=== PATIENT | female | born 1955 | race Caucasian/White ===

== ENCOUNTER 2023-12-31 10:19 | Emergency (ER) | payer OTHER ==
[~2023-12-31] VITALS: Ht 162.6 cm; Wt 100.0 kg
[~2023-12-31 10:19] MED LIST: METO-385 PO
[2023-12-31 10:30] VITALS: O2SAT 100
[2023-12-31] MEDS ORDERED: ACETAMINOPHEN 325MG TABLET PO STA (11:14)
[2023-12-31 11:28] LABS: BASOPHILS % 0.3 % (0.0-2.0); EOSINOPHILS % 0.7 % (0.0-5.0); HEMATOCRIT. 39.9 % (36.0-48.0); HEMOGLOBIN. 13.6 g/dL (12.0-16.0); LYMPHOCYTES % 25.8 % (20.0-50.0); MEAN CORPUSCULAR HEMOGLOBIN 31.8 pg (28.0-32.0); MEAN CORPUSCULAR HGB CONC 34.2 g/dL (31.0-37.0); MEAN CORPUSCULAR VOLUME 92.9 fL (81.0-99.0); MEAN PLATELET VOLUME 8.2 fl (7.4-10.4); MONOCYTES % 6.5 % (2.0-8.0); NEUTROPHILS % 66.7 % (40.0-76.0); PLATELET 257 x1000/uL (130-400); RED BLOOD CELL COUNT 4.29 mill/uL (4.2-5.4); RED CELL DISTRIBUTION WIDTH 12.8 % (11.6-14.6); WHITE BLOOD COUNT 9.2 x1000/uL (4.5-11.0)
[2023-12-31 11:38] LABS: INR 0.9; PROTHROMBIN TIME 10.1 sec (9.6-11.0)
[2023-12-31 12:44] LABS: TROPONIN I HIGH SENSITIVITY < 4 ng/L (3.0-34)
[2023-12-31] MEDS: ACETAMINOPHEN 325MG TABLET PO NR (13:05)
[2023-12-31] MEDS: THROAT LOZENGES-BENZOCAINE/MENTH/CETYLPYRD CL LOZENGES MM PRN (13:05)
[2023-12-31 13:34] LABS: CHLORIDE 105 mEq/L (98-107); POTASSIUM 4.3 mEq/L (3.5-5.1); SODIUM 142 mEq/L (136-145)
[2023-12-31 13:35] LABS: CARBON DIOXIDE 30 mEq/L (21-32)
[2023-12-31 13:40] LABS: CREATININE 0.6 mg/dL (0.6-1.0); GLUCOSE 102 mg/dL (70-105); UREA NITROGEN BLOOD 7 mg/dL (9-23)
[2023-12-31 13:41] LABS: ALANINE AMINOTRANSFERASE 16 IU/L (10-49); ASPARTATE AMINOTRANSFERASE 19 IU/L (<34)
[2023-12-31 13:42] LABS: ALBUMIN 4.9 g/dL (3.2-4.8); BILIRUBIN TOTAL 0.5 mg/dL (0.1-1.0); PROTEIN TOTAL 7.7 g/dL (6.0-8.3)
[2023-12-31 13:46] LABS: TROPONIN I HIGH SENSITIVITY < 4 ng/L (3.0-34)
[2023-12-31] MEDS ORDERED: BENZ1LOZ73 MT (16:04)
[2023-12-31] MEDS ORDERED: CETI10CA11 MT (16:04)
[2023-12-31] MEDS ORDERED: NAPR-681 MT (16:04)
[2023-12-31 16:20] VITALS: BP 155/90; PULSE 96; RESP 16; TEMP 98.2
== END 2023-12-31 17:29 | disposition home or self-care (01) ==
LOC: ER 10:19
DX: B34.9 Viral infection, unspecified (principal); E11.9 Type 2 diabetes mellitus without complications; E78.00 Pure hypercholesterolemia, unspecified; Z98.51 Tubal ligation status
CPT/HCPCS: 36415; 71045; 80053; 84484; 85025; 93005; 99291

== ENCOUNTER 2024-01-07 18:46 | Emergency (ER) | payer OTHER ==
[~2024-01-07] VITALS: Ht 162.6 cm; Wt 99.8 kg
[~2024-01-07 18:46] MED LIST changes: +BENZ1LOZ73 MT; +CETI10CA11 MT; +NAPR-681 MT
[2024-01-07 18:58] VITALS: O2SAT 99
[2024-01-07] MEDS ORDERED: TRAM50TA3 MT (20:10)
[2024-01-07] MEDS ORDERED: TOPUD MT (20:10)
[2024-01-07] MEDS: HYDROCODONE/ACETAMINOPHEN 5/325MG TABLET PO ONE (20:52)
[2024-01-07 21:25] VITALS: BP 144/76; PULSE 72; RESP 16; TEMP 98.7
== END 2024-01-07 21:27 | disposition home or self-care (01) ==
LOC: ER 18:46
DX: M72.2 Plantar fascial fibromatosis (principal); M25.571 Pain in right ankle and joints of right foot; E11.9 Type 2 diabetes mellitus without complications; E78.00 Pure hypercholesterolemia, unspecified; I10 Essential (primary) hypertension; Z98.51 Tubal ligation status
CPT/HCPCS: 73590; 73630; 99284

== ENCOUNTER 2025-06-05 15:31 | Emergency (ER) | payer OTHER ==
[~2025-06-05] VITALS: Ht 160 cm; Wt 95.0 kg
[~2025-06-05 15:31] MED LIST changes: +TOPUD MT; +TRAM50TA3 MT
[2025-06-05 15:32] VITALS: O2SAT 97
[2025-06-05 15:41] VITALS: BP 152/62; PULSE 90; RESP 16; TEMP 36.6; O2SAT 98
[2025-06-05 16:58] LABS: BASOPHILS % 0.3 % (0.0-2.0); EOSINOPHILS % 0.5 % (0.0-5.0); HEMATOCRIT. 39.7 % (36.0-48.0); HEMOGLOBIN. 13.5 g/dL (12.0-16.0); LYMPHOCYTES % 20.9 % (20.0-50.0); MEAN PLATELET VOLUME 8.9 fl (7.4-10.4); MONOCYTES % 3.7 % (2.0-8.0); NEUTROPHILS % 74.6 % (40.0-76.0); PLATELET 207 x1000/uL (130-400); RED BLOOD CELL COUNT 4.33 mill/uL (4.2-5.4); RED CELL DISTRIBUTION WIDTH 13.9 % (11.6-14.6)
[2025-06-05 17:17] LABS: CREATININE 1.1 mg/dL (0.6-1.0); UREA NITROGEN BLOOD 17 mg/dL (9-23)
[2025-06-05 17:18] LABS: PROTEIN TOTAL 7.3 g/dL (6.0-8.3); TROPONIN I HIGH SENSITIVITY < 4 ng/L (3.0-34)
[2025-06-05 17:19] LABS: ASPARTATE AMINOTRANSFERASE 22 IU/L (<34); BILIRUBIN DIRECT < 0.1 mg/dL (<=3.0); BILIRUBIN TOTAL 0.3 mg/dL (0.1-1.0)
[2025-06-05] MEDS ORDERED: METHOCARBAMOL 750MG TABLET PO STA (17:38)
[2025-06-05] MEDS: LIDOCAINE 5% PATCH TOP STA (18:10)
[2025-06-05] MEDS: METHOCARBAMOL 500MG TABLET PO NR (18:11)
[2025-06-05] MEDS: ACETAMINOPHEN 325MG TABLET PO ONE (18:11)
[2025-06-05] MEDS: IBUPROFEN 600MG TABLET PO ONE (18:11)
[2025-06-05] MEDS ORDERED: LIDO700A30 TP (18:18)
[2025-06-05] MEDS ORDERED: TOPUD MT (18:18)
[2025-06-05] MEDS ORDERED: IBUP-1455 MT (18:18)
[2025-06-05] MEDS ORDERED: METH-653 MT (18:18)
== END 2025-06-05 18:53 | disposition home or self-care (01) ==
LOC: ER 15:31
DX: M94.0 Chondrocostal junction syndrome [Tietze] (principal); M79.18 Myalgia, other site; R06.02 Shortness of breath; I10 Essential (primary) hypertension; E11.9 Type 2 diabetes mellitus without complications; E78.00 Pure hypercholesterolemia, unspecified; Z79.899 Other long term (current) drug therapy; Z79.1 Long term (current) use of non-steroidal anti-inflammatories (NSAID)
CPT/HCPCS: 36415; 71045; 80048; 80076; 83880; 84484; 85025; 85379; 93005; 99285